=== PATIENT | male | born 1945 | race Caucasian/White ===

== ENCOUNTER 2019-05-25 14:42 | Emergency (ER) | payer SELFPAY, OTHER, MEDICARE ==
[2019-05-25] MEDS: METHYLPREDNISOLONE 125 MG INJ IM (15:38)
[2019-05-25] MEDS: CEFTRIAXONE 1 GM INJ IM (16:47)
[2019-05-25] MEDS: LIDOCAINE 1% (MDV) 20 ML INJ SC (16:47)
== END 2019-05-25 16:57 | disposition home or self-care (01) ==
LOC: FTE 16:57
DX: J98.11 Atelectasis (principal); E11.9 Type 2 diabetes mellitus without complications; I10 Essential (primary) hypertension; J06.9 Acute upper respiratory infection, unspecified; Z79.82 Long term (current) use of aspirin
CPT/HCPCS: 71046; 96372; 99284-25